=== PATIENT | male | born 1980 | race American Indian/Alaskan Native ===

== ENCOUNTER 2017-04-10 12:20 | Emergency (ER) | payer SELFPAY ==
[2017-04-10 12:51] LABS: Basophils % (Auto) 0.8 % (0.0-1.8); Eosinophils % (Auto) 1.4 % (0.0-4.3); Hematocrit 44.7 % (35.5-45.6); Mean Corpuscular HGB Conc 34 % (32-34); Mean Corpuscular Hemoglobin 33 pg (28-32); Mean Corpuscular Volume 98 fl (84-94); Platelet Count 182 K/mm3 (140-440); Red Blood Count 4.57 M/mm3 (3.65-5.03); Red Cell Distribution Width 14.6 % (13.2-15.2); White Blood Count 5.9 K/mm3 (4.5-11.0)
[2017-04-10 13:04] LABS: Anion Gap 20 mmol/L; BUN/Creatinine Ratio 20; Blood Urea Nitrogen 14 mg/dL (9-20); Carbon Dioxide 23 mmol/L (22-30); Chloride 99.2 mmol/L (98-107); Glucose 110 mg/dL (75-100); Potassium 3.9 mmol/L (3.6-5.0); Sodium 138 mmol/L (137-145)
[2017-04-10 13:09] LABS: Urine Drugs of Abuse Note Disclamer
[2017-04-10 13:19] LABS: Bilirubin,Urine NEG (Negative); Blood,Urine NEG (Negative); Ketones,Urine NEG (Negative); Leukocyte Esterase,Urine NEG (Negative); Nitrite,Urine NEG (Negative); Protein,Urine <15 mg/dL mg/dL (Negative); Urobilinogen,Urine < 2.0 mg/dL (<2.0); WBC,Urine < 1.0 /HPF (0.0-6.0)
--- NOTE | 2017-04-10 18:19 | Emergency Department Report ---
HPI - General Chief Complaint: Psych Time Seen by Provider: 04/10/17 17:51 - HPI HPI: Room 23 The patient is a 36-year-old male presenting with a chief complaint of schizophrenia. The patient states he has been having auditory hallucinations for the past 12 years. Patient states she calms down when he receives an Angel will continue to flare up. Patient states the voices tell him things that are negative such as "they tell me to have a woman, they tried to treat me a lot of food long term and clothing." Patient denies suicidal or homicidal ideation. Patient does admit to visual hallucinations stating that he is seen shadows. The patient states he consumes alcohol daily if he has. Location: Mental state Duration: [See above] Quality: Auditory hallucination Severity: Moderate Modifying factors: [see above] Context: [see above] Mode of transportation: [not driving] ED Past Medical Hx - Past Medical History Previous Medical History?: Yes Hx Psychiatric Treatment: Yes (schizophrenia) - Surgical History Past Surgical History?: No - Family History Family history: no significant - Social History Smoking Status: Current Every Day Smoker (1/3 pack per day) Substance Use Type: Alcohol (daily), Marijuana - Medications Home Medications: Home Medications Medication Instructions Recorded Confirmed Last Taken Type Paliperidone Palmitate [Invega 39 mg IM QMONTH 04/10/17 04/10/17 Unknown History Sustenna] ED Review of Systems ROS: Stated complaint: MENTAL HEALTH EVALUATION Other details as noted in HPI Psychiatric: auditory hallucinations, visual hallucinations. denies: homicidal thoughts, suicidal thoughts Physical Exam - Physical Exam Vital Signs: Vital Signs 04/10/17 04/10/17 12:26 17:18 Temperature 97 F L 97.8 F Pulse Rate 77 82 Respiratory 16 Rate Blood Pressure 125/71 Blood Pressure 112/62 [Right] O2 Sat by Pulse 100 98 Oximetry Physical Exam: GENERAL: The patient is well-developed male lying on stretcher not appearing to be in acute distress HEENT: Normocephalic. Atraumatic. Extraocular motions are intact. Patient has moist mucous membranes. NECK: Supple. Trachea midline CHEST/LUNGS: Clear to auscultation. There is no respiratory distress noted. HEART/CARDIOVASCULAR: Regular. There is no tachycardia. There is no gallop rub or murmur. ABDOMEN: Abdomen is soft, nontender. Patient has normal bowel sounds. There is no abdominal distention. SKIN: There is no rash. There is no edema. There is no diaphoresis. NEURO: The patient is awake, alert, and oriented. The patient is cooperative. The patient has normal speech MUSCULOSKELETAL: There is no evidence of acute injury. ED Course Vital Signs 04/10/17 04/10/17 12:26 17:18 Temperature 97 F L 97.8 F Pulse Rate 77 82 Respiratory 16 Rate Blood Pressure 125/71 Blood Pressure 112/62 [Right] O2 Sat by Pulse 100 98 Oximetry - Consultations Consultation #1: 04/10/17 Case discussed with mental health foreign legal consultant 04/10/17 19:21 - Ring Maker's Note by MIGUEL ANGEL TORRES Acct Num: [id number] : 1980 Patient Age: 36 pt was assessed by sv. pt reported only drinking a cocktail and no withdrawals. pt denies si/hi. pt reported needed somewhere to stay due to being homeless. pt reported and smoking marijuana. pt doesn't meet inpatient criteria no psychosis only hear voices due to non compliance with medications. county tax assessor spoke with dr carrillo and recommended php or outpatient therapy. pt is not on a 1013. sv Initialized on 04/10/17 19:21 - END OF NOTE ED Medical Decision Making - Lab Data Result diagrams: 04/10/17 12:32 04/10/17 12:32 Laboratory Tests 04/10/17 04/10/17 04/10/17 12:32 12:32 12:32 WBC 5.9 RBC 4.57 Hgb 15.0 Hct 44.7 MCV 98 H MCH 33 H MCHC 34 RDW 14.6 Plt Count 182 Lymph % (Auto) 20.6 [place] % (Auto) 5.7 Eos % (Auto) 1.4 Baso % (Auto) 0.8 Lymph # 1.2 [place] # 0.3 Eos # 0.1 Baso # 0.0 Seg Neutrophils % 71.5 H Seg Neutrophils # 4.2 Sodium 138 Potassium 3.9 Chloride 99.2 Carbon Dioxide 23 Anion Gap 20 BUN 14 Creatinine 0.7 L Estimated GFR > 60 BUN/Creatinine Ratio 20 Glucose 110 H Calcium 9.0 Urine Color Urine Turbidity Urine pH Ur Specific [place] Urine Protein Urine Glucose (UA) Urine Ketones Urine Blood Urine Nitrite Urine Bilirubin Urine Urobilinogen Ur Leukocyte Esterase Urine WBC (Auto) Urine RBC (Auto) Urine Opiates Screen Urine Methadone Screen Ur Barbiturates Screen Ur Phencyclidine Scrn Ur Amphetamines Screen U Benzodiazepines Scrn Urine Cocaine Screen U Marijuana (THC) Screen Drugs of Abuse Note Plasma/Serum Alcohol 0.06 04/10/17 04/10/17 13:07 13:07 WBC RBC Hgb Hct MCV MCH MCHC RDW Plt Count Lymph % (Auto) [place] % (Auto) Eos % (Auto) Baso % (Auto) Lymph # [place] # Eos # Baso # Seg Neutrophils % Seg Neutrophils # Sodium Potassium Chloride Carbon Dioxide Anion Gap BUN Creatinine Estimated GFR BUN/Creatinine Ratio Glucose Calcium Urine Color Straw Urine Turbidity Clear Urine pH 5.0 Ur Specific Sean[place] 1.004 Urine Protein <15 mg/dl Urine Glucose (UA) Neg Urine Ketones Neg Urine Blood Neg Urine Nitrite Neg Urine Bilirubin Neg Urine Urobilinogen < 2.0 Ur Leukocyte Esterase Neg Urine WBC (Auto) < 1.0 Urine RBC (Auto) 1.0 Urine Opiates Screen Presumptive negative Urine Methadone Screen Presumptive negative Ur Barbiturates Screen Presumptive negative Ur Phencyclidine Scrn Presumptive negative Ur Amphetamines Screen Presumptive negative U Benzodiazepines Scrn Presumptive negative Urine Cocaine Screen Presumptive negative U Marijuana (THC) Screen Presumptive positive Drugs of Abuse Note Disclamer Plasma/Serum Alcohol - Differential Diagnosis schizophrenia, alcoholism Critical care attestation.: If time is entered above; I have spent that time in minutes in the direct care of this critically ill patient, excluding procedure time. ED Disposition Clinical Impression: Schizophrenia, Alcoholism, Homelessness Disposition: DC-01 TO HOME OR SELFCARE Is pt being admited?: No Does the pt Need Aspirin: No Condition: Stable Instructions: Schizophrenia (ED) Additional Instructions: Return to the emergency department immediately should you develop worsening symptoms, fever, inability to tolerate food or liquid or any other concerns. Referrals: PRIMARY CARE, [Primary Care Provider] - 3-5 Days [facility] [Outside] - 3-5 Days Time of Disposition: 20:41 (dispo per Social work)
[2017-04-10] MEDS ORDERED: VITAMIN B-1 100 MG, FOLVITE 1 MG, INFUVITE 10 ML, MAGNESIUM SULFATE 2 GM in NACL 0.9% 1... IV ONE (19:00)
[2017-04-11 07:46] VITALS: BP 110/63
--- NOTE | 2017-04-11 14:52 | Consultation ---
History of Present Illness - Reason for Consult Consult date: 04/11/17 Reason for consult: psychiatric consult - Chief Complaint Chief complaint: "Can I go back to [facility]?" - History of Present Psychiatric Illness The patient is a 36-year-old male presenting with a chief complaint of schizophrenia. He was initially uncooperative for interview and kept his head covered. Then he got out of bed and began answering questions. He then walked away mid [facility] for unknown reasons. Patient denies suicidal or homicidal ideation. He reports auditory hallucinations telling him "don't." He denies command hallucinations. He says he was at [facility] at [facility] and was discharged due to smoking in the bathroom. He wants to go back. He was there for 1 week. He was discharged within the past 2-3 days. Prior to that he was at [facility] where he received Invega Sustenna 234mg IM (his first injection). He is aware he needs the second. He says he needs to go back to [facility] because his check doesn't come until the 3rd and he planned to stay there until then. Medications and Allergies Allergies Allergy/AdvReac Type Severity Reaction Status Date / Time No Known Allergies Allergy Unverified 04/10/17 12:29 Home Medications Medication Instructions Recorded Confirmed Last Taken Type Paliperidone Palmitate [Invega 39 mg IM QMONTH 04/10/17 04/10/17 Unknown History Sustenna] Past psychiatric history - Past Medical History Past Medical History: No medical history - past Psychiatric treatment and history Psych: Schizophrenia - Social History Social history: smoking Mental Status Exam - Vital signs Last Vital Signs Temp 98.2 F 04/11/17 07:45 Pulse 63 04/11/17 07:45 Resp 16 04/11/17 07:45 BP 110/63 04/11/17 07:45 Pulse Ox 98 04/11/17 07:45 - Exam Orientation: time, place, person Affect: other (indifferent) Mood: congruent with affect Thought content: other (no SI/HI) Thought Process: Circumstantial Perceptions: auditory (non command) Speech: normal rate and pattern Concentration: distractible Motor activity: restless Level of consciousness: alert Memory: Intact Interaction: other (mostly cooperative) Results Result Diagrams: 04/10/17 12:32 04/10/17 12:32 All other labs normal. Assessment and Plan Assessment and plan: Impression: schizophrenia-needs medication management. He is overdue for the 2nd invega sustenna injection. The closest available medication would be risperdal. He is not displaying signs of aggression or reporting command hallucinations. He denies suicidal or homicidal ideation. Recommendation: Arrange for PHP Recommend 2mg hs until he can restart Invega Sustenna.
[2017-04-11] MEDS ORDERED: RisperDAL PO SCH (22:00)
== END 2017-04-11 17:15 | disposition left against medical advice (07) ==
LOC: ED 12:20
DX: F20.9 Schizophrenia, unspecified (principal); F10.20 Alcohol dependence, uncomplicated
CPT/HCPCS: 36415; 80048; 80307; 81001; 85025; 99284; G0480; J3411; J3475; J7030; 80320

== ENCOUNTER 2021-08-27 10:14 | Emergency (ER) | payer MEDICARE ==
[2021-08-27 10:38] VITALS: BP 115/69
--- NOTE | 2021-08-27 13:08 | Emergency Department Report ---
ED General Adult HPI - General Chief complaint: Medical Clearance Stated complaint: MEDICAL CLEARENCE PUI?: No Time Seen by Provider: 08/27/21 12:59 Source: patient Mode of arrival: Ambulatory Limitations: No Limitations - History of Present Illness Initial comments: Patient is a 40-year-old male that comes to the emergency room for Covid testing for psychiatric admission. He has a schizophrenic and has been abusing alcohol and marijuana. His last Invega injection was 2 weeks ago. The mental health facility told him to come to the ER to get Covid for clearance for admission. He has no complaints. He has no HI or SI. Severity scale (0 -10): 0 - Related Data Home Medications Medication Instructions Recorded Confirmed Last Taken Paliperidone Palmitate [Invega 39 mg IM QMONTH 04/10/17 04/10/17 Unknown Sustenna] Allergies Allergy/AdvReac Type Severity Reaction Status Date / Time No Known Allergies Allergy Unverified 04/10/17 12:29 ED Review of Systems ROS: Stated complaint: MEDICAL CLEARENCE Other details as noted in HPI Comment: All other systems reviewed and negative ED Past Medical Hx - Past Medical History Previous Medical History?: Yes Hx Psychiatric Treatment: Yes (schizophrenia) - Surgical History Past Surgical History?: No - Family History Family history: no significant - Social History Smoking Status: Current Every Day Smoker (1/3 pack per day) Substance Use Type: Alcohol (daily), Marijuana - Medications Home Medications: Home Medications Medication Instructions Recorded Confirmed Last Taken Type Paliperidone Palmitate [Invega 39 mg IM QMONTH 04/10/17 04/10/17 Unknown History Sustenna] ED Physical Exam - General Limitations: No Limitations General appearance: alert, in no apparent distress - Head Head exam: Present: atraumatic, normocephalic - Eye Eye exam: Present: normal appearance - ENT ENT exam: Present: mucous membranes moist - Neck Neck exam: Present: normal inspection - Respiratory Respiratory exam: Present: normal lung sounds bilaterally. Absent: respiratory distress - Cardiovascular Cardiovascular Exam: Present: regular rate, normal rhythm. Absent: systolic murmur, diastolic murmur, rubs, gallop - GI/Abdominal GI/Abdominal exam: Present: soft, normal bowel sounds - Rectal Rectal exam: Present: deferred - Extremities Exam Extremities exam: Present: normal inspection - Back Exam Back exam: Present: normal inspection - Neurological Exam Neurological exam: Present: alert, oriented X3 - Psychiatric Psychiatric exam: Present: agitated, anxious - Skin Skin exam: Present: warm, dry, intact, normal color. Absent: rash ED Course Vital Signs 08/27/21 10:35 Temperature 98.4 F Pulse Rate 74 Respiratory 16 Rate Blood Pressure 115/69 [Right] O2 Sat by Pulse 100 Oximetry ED Medical Decision Making - Medical Decision Making covid needed for MHE Vital Signs 08/27/21 10:35 Temperature 98.4 F Pulse Rate 74 Respiratory 16 Rate Blood Pressure 115/69 [Right] O2 Sat by Pulse 100 Oximetry 1400 [place] the charge nurses collecting a specimen container from the lab for patient's Covid testing. Once given his Covid test result the patient is cleared for discharge 1329 I have myself sent the Covid test. I have just called the lab and they are reporting about 15 minutes for results. Patient has been agitated during the last half hour or so of his stay but he is waited 6 hours for Covid test. I spoke with security. He is appropriately agitated. I have allowed him to go in and out to smoke. Nurses at the nurses station are aware of the patient's delay and why he is agitated. Once Covid test comes back he will be discharged for his MHP assistance. - Differential Diagnosis Medical clearance Critical care attestation.: If time is entered above; I have spent that time in minutes in the direct care of this critically ill patient, excluding procedure time. ED Disposition Clinical Impression: Medical clearance for psychiatric admission Disposition: 01 HOME / SELF CARE / HOMELESS Is pt being admited?: No Does the pt Need Aspirin: No Condition: Stable Referrals: LAKESHA BECKFORD MD [Primary Care Provider] - 3-5 Days Time of Disposition: 13:07
== END 2021-08-27 16:00 | disposition home or self-care (01) ==
LOC: ED 10:14
DX: Z13.30 Encounter for screening examination for mental health and behavioral disorders, unspecified (principal); F17.200 Nicotine dependence, unspecified, uncomplicated; F10.20 Alcohol dependence, uncomplicated; F12.90 Cannabis use, unspecified, uncomplicated; F20.9 Schizophrenia, unspecified; Z20.822 Contact with and (suspected) exposure to COVID-19
CPT/HCPCS: 99283; U0003